=== PATIENT | female | born 1980 | race African-American/Black ===

== ENCOUNTER 2020-04-17 16:57 | Emergency (ER) | payer SELFPAY ==
[2020-04-17 17:06] VITALS: BP 136/76; PULSE 64; TEMP 98.2; BMI 21.1
--- NOTE | 2020-04-17 17:54 | PDOC ---
History of Present Illness - General Chief Complaint: Ear Problem Stated Complaint: R EAR PAIN Time Seen by Provider: 04/17/20 17:32 - History of Present Illness Initial Comments: 04/17/20 17:51 40-year-old female no comorbidities presents for right ear irritation with a foreign body sensation x1 day Past History - Medical History Allergies/Adverse Reactions: Allergies Allergy/AdvReac Type Severity Reaction Status Date / Time No Known Allergies Allergy Verified 04/17/20 17:01 Home Medications: Ambulatory Orders Budesonide [Rhinocort Allergy] 1 spray NS ONCE #1 spray.pump 04/17/20 Cetirizine HCl/Pseudoephedrine [Zyrtec-D Tablet] 1 each PO DAILY #30 tab.er.12h 04/17/20 - Reproductive History Is Patient Now?: No - Psycho-Social/Smoking History Smoking History: Current every day smoker Have you smoked in the past 12 months: Yes Number of Cigarettes Smoked Daily: 3 Information on smoking cessation initiated: Yes - Substance Abuse Hx (Audit-C & DAST Scrn) How often the patient has a drink containing alcohol: Never Score: In Men: 4 or > Positive; In Women: 3 or > Positive: 0 Screen Result (Pos requires Nsg. Audit-10AR): Negative In the last yr the pt used illegal drug/Rx for NonMed reason: No Score: Yes response is considered Positive: 0 Screen Result (Positive result requires Nsg. DAST-10): Negative Review of Systems - Review of Systems Constitutional: No: Fever HEENTM: Yes: See HPI, Ear Pain *Physical Exam - Vital Signs Last Vital Signs Temp Pulse Resp BP Pulse Ox 98.2 F 64 16 136/76 100 04/17/20 17:02 04/17/20 17:02 04/17/20 17:02 04/17/20 17:02 04/17/20 17:02 - Physical Exam General Appearance: Yes: Nourished, Appropriately Dressed. No: Apparent Distress HEENT: positive: Photophobia, Other (Bilateral ears are normal canals are normal no foreign bodies either ear canals. Minimal erythema tympanic membranes with slight bulging.) Neck: positive: Supple Respiratory/Chest: negative: Respiratory Distress Medical Decision Making - Medical Decision Making 04/17/20 17:53 We will treat with antihistamine decongestant as well as nasal spray for most likely seasonal allergies follow-up with ENT. Patient states she does suffer from this yearly. I have reviewed the pathophysiology with the patient. They are in agreement with the treatment plan all questions were answered to their satisfaction. Understanding for follow-up without fail was also conveyed to the patient. Again they are in agreement. Discharge - Discharge Information Problems reviewed: Yes Clinical Impression/Diagnosis: Seasonal allergies Condition: Stable Disposition: HOME - Admission No - Additional Discharge Information Prescriptions: Budesonide [Rhinocort Allergy] 1 spray NS ONCE #1 spray.pump Cetirizine HCl/Pseudoephedrine [Zyrtec-D Tablet] 1 each PO DAILY #30 tab.er.12h - Follow up/Referral Referrals: Conrado Cueto MD [Staff Physician] - - Patient Discharge Instructions Additional Instructions: Return to the emergency room for worsening symptoms. Follow-up with ear nose and throat doctor in 1 to 2 days without fail for further evaluation and treatment options. Please take the antihistamine decongestant and nasal spray as directed. - Post Discharge Activity
== END 2020-04-17 18:10 | disposition home or self-care (01) ==
LOC: JERFT 16:57
DX: J30.2 Other seasonal allergic rhinitis (principal)
CPT/HCPCS: 99281-25

== ENCOUNTER 2021-05-29 22:32 | Emergency (ER) | payer OTHER ==
[2021-05-29 22:40] VITALS: PULSE 73; BMI 21.1
[2021-05-30 00:45] LABS: EPI CELLS 4 /uL (0-25.1); HYALINE CASTS 1 /uL (0-3.1); URINE APPEARANCE TURBID; URINE BACTERIA >9,000 /uL (0-1359); URINE BILIRUBIN NEGATIVE (NEGATIVE); URINE COLOR YELLOW; URINE GLUCOSE (UA) NEGATIVE (NEGATIVE); URINE KETONE NEGATIVE (NEGATIVE); URINE LEUK ESTERASE 1+ (NEGATIVE); URINE NITRITE POSITIVE (NEGATIVE); URINE PROTEIN TRACE (NEGATIVE); URINE RBC 74 /uL (0-23.9); URINE WBC 112 /uL (0-25.8)
[2021-05-30 00:49] LABS: HCG,QUALITATIVE URINE Negative
[2021-05-30 00:53] LABS: HEMATOCRIT 40.9 % (32.4-45.2); MCH 32.8 pg (25.7-33.7); MCHC 34.2 g/dl (32.0-36.0); MEAN CELL VOLUME 95.8 fl (80-96); MEAN PLT VOLUME 8.7 fl (7.5-11.1); PLATELET COUNT 295 10^3/uL (134-434); RBC 4.26 M/mm3 (3.60-5.2); RDW 13.4 % (11.6-15.6); WHITE BLOOD COUNT 7.4 K/mm3 (4.0-10.0)
[2021-05-30 01:11] LABS: CHLORIDE 108 mmol/L (98-107); SODIUM 137 mmol/L (136-145)
[2021-05-30] MEDS ORDERED: ACETAMINOPHEN 1000 MG/100 ML VIAL IVPB ONE (01:11)
[2021-05-30] MEDS ORDERED: ONDANSETRON 4 MG/2 ML VIAL IVPUSH ONE (01:11)
[2021-05-30 01:13] LABS: CALCIUM 8.8 mg/dL (8.5-10.1); GLUCOSE,RANDOM 85 mg/dL (74-106)
[2021-05-30 01:14] LABS: ALBUMIN 3.6 g/dl (3.4-5.0); BLOOD UREA NITROGEN 11.9 mg/dL (7-18); CO2 32 mmol/L (21-32)
[2021-05-30 01:16] LABS: CREATININE 0.9 mg/dL (0.55-1.3)
[2021-05-30 01:17] LABS: SGOT/AST 72 U/L (15-37)
[2021-05-30 01:18] LABS: BILIRUBIN,TOTAL 1.1 mg/dL (0.2-1); TOT PROT 7.7 g/dl (6.4-8.2)
[2021-05-30 01:19] LABS: ALK PHOS 56 U/L (45-117)
[2021-05-30] MEDS ORDERED: ACETAMINOPHEN INJECTION 100 ML IVPB ONE (01:36)
[2021-05-30] MEDS ORDERED: ONDANSETRON 4 MG/2 ML VIAL ONE (01:36)
[2021-05-30 01:41] LABS: ANION GAP -3 MMOL/L (8-16); SGPT/ALT 42 U/L (13-61)
[2021-05-30] MEDS ORDERED: CEFTRIAXONE 1 GM in DEXTROSE 5%-WATER - 50 ML IVPB ONE (02:04)
[2021-05-30] MEDS ORDERED: CEFTRIAXONE 1 GM/50 ML BAG ONE (02:57)
[2021-05-30 03:23] VITALS: BP 125/82; TEMP 98.3
[2021-05-30 03:40] LABS: ANISOCYTOSIS 0; HELMET CELLS 0; HOWELL-JOLLY BODIES 0; MACROCYTOSIS 0; OVALOCYTE 0; PLATELET ESTIMATE NORMAL; ROULEAU 0; SICKELED CELLS 0; TARGET CELLS 0; TEAR DROP CELLS 0; TOXIC GRANULATION 0
== END 2021-05-30 03:24 | disposition home or self-care (01) ==
LOC: JER 22:32
PROC: 3E03329 Introduction of Other Anti-infective into Peripheral Vein, Percutaneous Approach (ICD-10-PCS; principal; 2021-05-30)
PROC: 3E033GC Introduction of Other Therapeutic Substance into Peripheral Vein, Percutaneous Approach (ICD-10-PCS; 2021-05-30)
PROC: 3E033GC Introduction of Other Therapeutic Substance into Peripheral Vein, Percutaneous Approach (ICD-10-PCS; 2021-05-30)
DX: R10.31 Right lower quadrant pain (principal); N30.01 Acute cystitis with hematuria
CPT/HCPCS: 36415; 74177-TC; 76830-TC; 80053; 81003; 84132; 84702; 84703; 85025; 86850; 86900; 86901; 96365; 96375; 99285-25; J0131